=== PATIENT | male | born 1995 | race Caucasian/White ===

== ENCOUNTER → 2018-03-28 | Outpatient (CLI) | payer OTHER ==
[2018-03-28 16:54] LABS: Basophils # (A) 0.1 k/uL (0-0.2); Basophils % (A) 1 %; Eosinophils # (A) 0.4 k/uL (0-0.7); Eosinophils % (A) 5 %; HCT 45.1 % (39.0-53.0); HGB 15.2 gm/dL (13.0-17.5); Lymphocytes # (A) 2.5 k/uL (1.0-4.8); Lymphocytes % (A) 31 %; MCH 28.9 pg (25.0-35.0); MCHC 33.7 g/dL (31.0-37.0); MCV 85.9 fL (80.0-100.0); Mean Platelet Volume 7.8; Monocytes # (A) 0.5 k/uL (0-1.0); Monocytes % (A) 6 %; Neutrophils # (A) 4.3 k/uL (1.3-7.7); Neutrophils % (A) 54 %; Platelet Count 176 k/uL (150-450); RBC 5.26 m/uL (4.30-5.90); RDW 12.9 % (11.5-15.5); WBC 8.1 k/uL (3.8-10.6)
== END | disposition home or self-care (01) ==
LOC: LABWHC1 16:20
PROVIDERS: ATTEND Physician Assistant Medical
DX: L40.0 Psoriasis vulgaris (principal)
CPT/HCPCS: 36415; 82565; 84450; 84460; 85025; 86480

== ENCOUNTER → 2018-04-06 | Outpatient (CLI) | payer OTHER ==
[2018-04-07 04:11] LABS: Albumin 4.7 g/dL (3.80-4.90); Albumin/Globulin Ratio 2.24 (1.20-2.10); Bilirubin, Conjugated 0.2 mg/dL (0.20-0.40); Bilirubin,Unconjugated 0.2 mg/dL; Globulin 2.1 g/dL (2.1-3.7); Total Bilirubin 0.4 mg/dL (0.2-1.2); Total Protein 6.8 g/dL (6.2-8.2)
[2018-04-07 05:21] LABS: Hepatitis A Antibody IgM Non-Reactive (Non-Reactive); Hepatitis B Core IgM Non-Reactive (Non-Reactive)
== END | disposition home or self-care (01) ==
LOC: LABWHC1 16:15
PROVIDERS: ATTEND Family Medicine
DX: R74.8 Abnormal levels of other serum enzymes (principal)
CPT/HCPCS: 36415; 80074; 80076

== ENCOUNTER → 2018-04-28 | Outpatient (CLI) | payer OTHER ==
--- NOTE | 2018-04-28 15:45 | US ---
EXAMINATION TYPE: US liver DATE OF EXAM: 04/28/2018 COMPARISON: NONE CLINICAL HISTORY: R74.8 abnormal levels of other serum enzymes. elevated liver enzymes EXAM MEASUREMENTS: Liver Length: 16.1 cm Gallbladder Wall: 0.2 cm CBD: 0.3 cm Right Kidney: 13.3 x 6.5 x 5.2 cm Pancreas: Obscured by bowel gas Liver: attenuating Gallbladder: no evidence of stones Evidence for sonographic Sánchez's sign: no CBD: appears wnl Right Kidney: enlarged, no evidence of hydronephrosis IMPRESSION: 1. Mild fatty infiltration of the liver.
== END | disposition home or self-care (01) ==
LOC: RADUSWWP 15:11
PROVIDERS: ATTEND Family Medicine
DX: K76.0 Fatty (change of) liver, not elsewhere classified (principal)
CPT/HCPCS: 76705

== ENCOUNTER 2018-09-05 15:11 | Emergency (ER) | payer OTHER ==
[2018-09-05] MEDS ORDERED: SODIUM CHLORIDE 0.9% IRRIG 1,000 ML BTL IRRIGATION ONE (15:21)
[2018-09-05] MEDS ORDERED: LIDOCAINE 1% INJ 10MG/ML (20 ML MDV) SQ ONE (15:21)
[2018-09-05 15:37] VITALS: RESP 18; TEMP 97.5
--- NOTE | 2018-09-05 15:47 | XR ---
EXAMINATION TYPE: XR hand complete RT DATE OF EXAM: 09/05/2018 COMPARISON: NONE HISTORY: Pain TECHNIQUE: Three views are submitted. FINDINGS: There is a displaced transverse fracture through the shaft of the middle phalanx fourth digit and the lateral view of the volar plate third digit. There also appears to be a lucency through the middle p halanx of the second digit suggestive of a nondisplaced fracture. Soft tissue edema and emphysema are noted involving these 3 digits. IMPRESSION: 1. Displaced fracture middle phalanx fourth digit. 2. nondisplaced fracture middle phalanx second digit. 3. mildly displaced volar plate fracture middle phalanx third digit.
[2018-09-05] MEDS ORDERED: ceFAZolin 1,000 MG VIAL IM STA (15:49)
[2018-09-05] MEDS ORDERED: ceFAZolin IN SWFI 2 GM/20 ML SYRINGE IVP ONE (16:33)
--- NOTE | 2018-09-05 16:54 | ED ---
Upper Extremity HPI - General Chief Complaint: Extremity Injury, Upper Stated Complaint: Hand injury-[facility] Time Seen by Provider: 09/05/18 15:14 Source: patient, EMS Mode of arrival: EMS Limitations: no limitations - History of Present Illness Initial Comments: 23-year-old male presenting for right hand injury. Patient is left-handed. Patient states shows prior to arrival he was at work when his hand was pinched between a hydraulic machine to piece of metal. Patient states he immediately within 5 seconds removed his hand. Patient states there are laceration was unable to fully range at the digits secondary to pain. Patient was concerned about fractures and presented for evaluation. Patient states tetanus is updated within the last 5 years. Patient states he has an ALLERGY to Vicodin he states he was given morphine prior to arrival by EMS. Patient denies any other areas of injury chest pain at the wrist elbow or shoulder. Patient denies any numbness tingling of the fingers. He states he has full sensation. Patient denies any coolness or pallor of the distal extremities including the fingertips. Patient denies any bleeding under the nail beds. Remaining review of systems negative upon arrival patient appears well no signs of acute distress. Patient states pain is controlled. - Related Data Home Medications Medication Instructions Recorded Confirmed Stalara 1 injection IV Q84D 09/05/18 09/05/18 Previous Rx's Medication Instructions Recorded Acetaminophen with Codeine 1 tab PO Q4H PRN 3 Days #18 tab 09/05/18 [Tylenol w/codeine #3] Cephalexin [Keflex] 500 mg PO Q8HR 7 Days #21 cap 09/05/18 Allergies Allergy/AdvReac Type Severity Reaction Status Date / Time hydrocodone bitartrate AdvReac Unknown Verified 09/05/18 15:41 [From Vicodin] Review of Systems ROS Statement: Those systems with pertinent positive or pertinent negative responses have been documented in the HPI. ROS Other: All systems not noted in ROS Statement are negative. Past Medical History Past Medical History: No Reported History History of Any Multi-Drug Resistant Organisms: None Reported Past Surgical History: No Surgical Hx Reported Past Psychological History: No Psychological Hx Reported Smoking Status: Never smoker General Exam - General Exam Comments Initial Comments: General: The patient is awake and alert, in no distress, and does not appear acutely ill. Eye: +3 mm pupils are equal, round and reactive to light, extra-ocular movements are intact. No nystagmus. There is normal conjunctiva bilaterally. No signs of icterus. Ears, nose, mouth and throat: There are moist mucous membranes and no oral lesions. Neck: The neck is supple, there is no tenderness or JVD. Cardiovascular: There is a regular rate and rhythm. No murmur, rub or gallop is appreciated. Respiratory: Lungs are clear to auscultation, respirations are non-labored, breath sounds are equal. No wheezes, stridor, rales, or rhonchi. Musculoskeletal: Normal ROM at the MTP joint of all 5 digits of the right hand, full ROM at the PIP joint of digits 2 % 3. Limited ROM at digit 4 PIP joint/DIP joint. Strength 5/5 at the MTP joint, PIP of the digits 2& 3. 1.5 cm laceration at digit 4, that appears to have possibility of communication with bone no obvious bone or tendon exposure. 1cm laceration of digits 2 & 3, appear superficial. Sensation intact of all 5 digits at the fingertips of the right hand. Capillary refill of all 5 digits of the left hand less than 3 seconds Radial pulses equal bilaterally 2+. Laceration of the index finger on the ventral aspect, superficial 2.7cm. Neurological: A&O x 3. CN II-XII intact, There are no obvious motor or sensory deficits. Coordination appears grossly intact. Speech is normal. Skin: Skin is warm and dry and no rashes or lesions are noted. Psychiatric: Cooperative, appropriate mood & affect, normal judgment. Limitations: no limitations Course Vital Signs 09/05/18 09/05/18 15:33 16:55 Temperature 97.5 F L Pulse Rate 87 82 Respiratory 18 18 Rate Blood Pressure 128/84 131/87 O2 Sat by Pulse 97 98 Oximetry Procedures - Laceration Laceration #1 Consent Obtained: verbal consent Indication: laceration Site: hand (digit #1 dorsal aspect) Size (cm): 1 Description: irregular Anesthesia Technique: nerve block Amount (mls): 2 Pre-repair: wound explored, irrigated extensively, deep structures intact Type of Sutures: nylon Size of Sutures: 5-0 Number of Sutures: 3 Technique: simple, interrupted Patient Tolerated Procedure: well, no complications Laceration #2 Consent Obtained: verbal consent Indication: laceration Site: hand (digit 2 ventral surface) Size (cm): 1 Description: linear Depth: simple, single layer Anesthesia Technique: nerve block Amount (mls): 1 Type of Sutures: nylon Size of Sutures: 5-0 Number of Sutures: 1 Technique: simple, interrupted (loosely approximated) Patient Tolerated Procedure: well, no complications Laceration #3 Consent Obtained: verbal consent Indication: laceration Site: hand (digit #3 dorsal surface) Size (cm): 1 Description: linear Depth: simple, single layer Anesthesia Technique: nerve block Amount (mls): 2 Pre-repair: wound explored, irrigated extensively Type of Sutures: nylon Size of Sutures: 5-0 Number of Sutures: 1 Technique: simple, interrupted (loose approx) Patient Tolerated Procedure: well, no complications Laceration #4 Consent Obtained: verbal consent Indication: laceration Size (cm): 1 Description: linear Depth: simple, single layer Anesthetic Used: lidocaine 1% Anesthesia Technique: nerve block Amount (mls): 2 Pre-repair: wound explored, irrigated extensively, deep structures intact Type of Sutures: nylon Size of Sutures: 5-0 Number of Sutures: 1 Technique: simple, interrupted (loosely approximated) Patient Tolerated Procedure: well, no complications Medical Decision Making - Medical Decision Making 23-year-old male presenting today for chief complaint of crush injury to the right hand. Patient left hand dominant. Patient is neurovascularly intact. Patient's presentation and capillary refill of all 5 digits of the left hand. No pallor or coolness of the distal digits. Lacerations with possibility of open fractures with most concern for open fracture at digit 4 were repaired loose approximation with one suture for digits 2-4, lacerations all ~1.5cm in length and on dorsal surface. There is a 2.7cm superficial laceration on the ventral aspect of the index finger. After extensive irrigation and approximation as well as cleansed with iodine., Patient was bandaged and splinted were applied. I did discuss prior to treatment of wounds case with Rod MCGILL at orthopedic surgery who spoke with attending Dr. Sánchez who recommended abx, irrigation, loose approximation,splint, d/c with keflex and outpatient f/u. They did not recommend setting finger, stating that pin will need to be placed. Pt made appointment for 945AM tomorrow while in the ER. Pt given RX for tylenol #3. After discussing risk of opioid use with patient. Patient was discharged appearing well aware of the importance of return parameters as well as outpatient follow-up. Patient discharged premolar after discussing the case with a provider : Reviewed imaging studies. Disposition Clinical Impression: Open fracture of middle phalanx of finger, Multiple open fractures of middle phalanx of finger Disposition: HOME SELF-CARE Condition: Good Instructions (If sedation given, give patient instructions): Finger Fracture (ED) Additional Instructions: Please use medication as discussed. Please follow-up with orthopedic surgery as discussed. Please return to emergency room if the symptoms increase or worsen or for any other concerns. Prescriptions: Cephalexin [Keflex] 500 mg PO Q8HR 7 Days #21 cap Acetaminophen with Codeine [Tylenol w/codeine #3] 1 tab PO Q4H PRN 3 Days #18 tab PRN Reason: Severe Pain Is patient prescribed a controlled substance at d/c from ED?: Yes When asked, does pt state using other controlled substances?: No If prescribed controlled substance>3 days was MAPS reviewed?: Prescribed <3 Days If opioid is for acute pain is fill amount 7 days or less?: Yes If Rx opioid, was Start Talking consent form obtained?: Yes Referrals: Jose Guevara DO [Primary Care Provider] - 1-2 days Dany Sánchez MD [STAFF PHYSICIAN] - 1-2 days Time of Disposition: 16:57
[2018-09-05 16:56] VITALS: BP 131/87; PULSE 82
== END 2018-09-05 17:13 | disposition home or self-care (01) ==
LOC: EC 15:11
DX: S67.194A Crushing injury of right ring finger, initial encounter (principal); S67.192A Crushing injury of right middle finger, initial encounter; S67.190A Crushing injury of right index finger, initial encounter; S62.624B Displaced fracture of middle phalanx of right ring finger, initial encounter for open fracture; S62.622B Displaced fracture of middle phalanx of right middle finger, initial encounter for open fracture; S62.650B Nondisplaced fracture of middle phalanx of right index finger, initial encounter for open fracture; Z79.899 Other long term (current) drug therapy; Z88.5 Allergy status to narcotic agent; W31.89XA Contact with other specified machinery, initial encounter; Y92.69 Other specified industrial and construction area as the place of occurrence of the external cause; Y99.0 Civilian activity done for income or pay
CPT/HCPCS: 73130; 99284; 12002; 96374; J2001; J0690

== ENCOUNTER → 2019-05-04 | Outpatient (CLI) | payer OTHER ==
--- NOTE | 2019-05-06 13:22 | US ---
EXAMINATION TYPE: US scrotum with doppler. TECHNIQUE: Grayscale and color Doppler Duplex imaging performed of the scrotum. DATE OF EXAM: 05/04/2019 COMPARISON: NONE CLINICAL HISTORY: 23-year-old male N50.819 TESTICULAR PAIN. FINDINGS: EXAM MEASUREMENTS: TESTICLES: Right Testicle: 5.1 x 2.6 x 3.7 cm for a volume of 25.6 mL Left Testicle: 5.2 x 2.6 x 2.9 cm for a volume of 20.3 mL The testicles show homogeneous appearance with symmetric color flow. Satisfactory arterial and venous flow bilaterally. Some superimposed venous flow is demonstrated. EPIDIDYMIS HEAD: Right Epididymis: 0.7 cm cyst noted measuring 3 mm Left Epididymis: 0.9 cm Doppler performed to assess for testicular vascularity; good bilateral color flow and waveforms are s een. There is no evidence of testicular torsion. Presence of hydroceles: Trace on the right Presence of varicoceles: no IMPRESSION: 1. Slightly prominent size but symmetric appearance of the testicles. No sonographic evidence for deepti ticular torsion or epididymoorchitis. 2. Trace right-sided hydrocele.
== END | disposition home or self-care (01) ==
LOC: RADUSWWP 16:13
PROVIDERS: ATTEND Family Medicine
DX: N50.819 Testicular pain, unspecified (principal)
CPT/HCPCS: 76870; 93975

== ENCOUNTER → 2019-06-19 | Outpatient (CLI) | payer OTHER ==
[~2019-06-19] MED LIST: TUBERCULIN PPD (SKIN TEST) 5 UNIT/0.1 ML (MDV) VIAL INTRADERMA ONE
[2019-06-19 16:24] VITALS: BP 141/74; PULSE 84; RESP 16; TEMP 98.1
[2019-06-19 16:54] LABS: ALT 98 U/L (4-49); AST 49 U/L (17-59); African American GFR (CKD) >90 (>60 ml/min/1.73 sqM); Non-African American GFR(CKD) >90 (>60 ml/min/1.73 sqM)
[2019-06-19 16:55] LABS: Basophils % (A) 1 %; Eosinophils # (A) 0.1 k/uL (0-0.7); Eosinophils % (A) 2 %; HCT 42.7 % (39.0-53.0); HGB 14.4 gm/dL (13.0-17.5); Lymphocytes # (A) 2.7 k/uL (1.0-4.8); Lymphocytes % (A) 33 %; MCH 27.9 pg (25.0-35.0); MCHC 33.8 g/dL (31.0-37.0); MCV 82.8 fL (80.0-100.0); Mean Platelet Volume 7.9; Monocytes # (A) 0.4 k/uL (0-1.0); Monocytes % (A) 5 %; Neutrophils # (A) 4.5 k/uL (1.3-7.7); Neutrophils % (A) 56 %; Platelet Count 256 k/uL (150-450); RBC 5.16 m/uL (4.30-5.90); RDW 12.5 % (11.5-15.5); WBC 8.1 k/uL (3.8-10.6)
== END | disposition home or self-care (01) ==
LOC: PROCWHC3 16:04
PROVIDERS: ATTEND Dermatology MOHS-Micrographic Surgery
DX: L40.0 Psoriasis vulgaris (principal)
CPT/HCPCS: 36415; 82565; 84450; 84460; 85025; 86580

== ENCOUNTER → 2020-06-27 | Outpatient (CLI) | payer OTHER ==
[2020-06-27 23:23] LABS: Basophils # (A) 0.07 X 10*3/uL (0.00-0.10); Basophils % (A) 0.7 %; Eosinophils # (A) 0.43 X 10*3/uL (0.04-0.35); Eosinophils % (A) 4.4 %; HCT 46.4 % (39.6-50.0); HGB 15.5 g/dL (13.0-17.0); Lymphocytes % (A) 33.8 %; MCH 28.9 pg (27.0-32.0); MCHC 33.4 g/dL (32.0-37.0); MCV 86.4 fL (80.0-97.0); Mean Platelet Volume 11.7 fL (9.5-12.2); Monocytes # (A) 0.77 X 10*3/uL (0.20-1.00); Monocytes % (A) 7.9 %; Neutrophils # (A) 5.13 X 10*3/uL (1.80-7.70); Neutrophils % (A) 52.7 %; Platelet Count 232 X 10*3/uL (140-440); RBC 5.37 X 10*6/uL (4.40-5.60); RDW 12.3 % (11.5-14.5); WBC 9.75 X 10*3/uL (4.50-10.00)
[2020-06-28 01:38] LABS: African American GFR (CKD) 106.1 (60.0-200.0); Non-African American GFR(CKD) 91.5 (60.0-200.0)
[2020-06-28 04:32] LABS: Hepatitis B Surface AB- Quant 3.5 mIU/mL; Hepatitis B Surface Antibody Non-Reactive (Non-Reactive)
== END | disposition home or self-care (01) ==
LOC: LABWHC1 15:00
PROVIDERS: ATTEND Physician Assistant Medical
DX: L40.0 Psoriasis vulgaris (principal)
CPT/HCPCS: 36415; 82565; 84450; 84460; 85025; 86480; 86704; 86706

== ENCOUNTER → 2021-09-30 | Outpatient (CLI) | payer OTHER ==
[2021-09-30 22:36] LABS: African American GFR (CKD) 95.8 (60.0-200.0); Non-African American GFR(CKD) 82.6 (60.0-200.0)
[2021-09-30 22:39] LABS: Basophils # (A) 0.06 X 10*3/uL (0.00-0.10); Basophils % (A) 0.7 %; Eosinophils # (A) 0.35 X 10*3/uL (0.04-0.35); Eosinophils % (A) 4.3 %; HCT 44.9 % (39.6-50.0); HGB 14.3 g/dL (13.0-17.0); Immature Grans, Automated 0.4 %; Lymphocytes # (A) 2.94 X 10*3/uL (0.90-5.00); Lymphocytes % (A) 36.2 %; MCHC 31.8 g/dL (32.0-37.0); Mean Platelet Volume 12.2 fL (9.5-12.2); Monocytes # (A) 0.52 X 10*3/uL (0.20-1.00); Monocytes % (A) 6.4 %; NRBC Per 100 WBC 0 /100 WBCS (0.0-0.0); Neutrophils # (A) 4.23 X 10*3/uL (1.80-7.70); Platelet Count 195 X 10*3/uL (140-440); RDW 12.1 % (11.5-14.5); WBC 8.13 X 10*3/uL (4.50-10.00)
== END | disposition home or self-care (01) ==
LOC: LABWHC1 15:48
PROVIDERS: ATTEND Physician Assistant Medical
DX: L40.0 Psoriasis vulgaris (principal)
CPT/HCPCS: 36415; 82565; 84450; 84460; 85025; 86480

== ENCOUNTER → 2022-11-26 | Outpatient (CLI) | payer OTHER ==
[2022-11-27 02:24] LABS: Basophils # (A) 0.06 X 10*3/uL (0.00-0.10); Basophils % (A) 0.7 %; Eosinophils % (A) 4.6 %; HCT 46.1 % (39.6-50.0); HGB 15.3 d/dL (13.0-17.0); Lymphocytes # (A) 2.94 X 10*3/uL (0.90-5.00); Lymphocytes % (A) 33.8 %; MCH 29.4 pg (27.0-32.0); MCHC 33.2 d/dL (32.0-37.0); MCV 88.5 FL (80.0-97.0); Mean Platelet Volume 12.1 FL (9.5-12.2); Monocytes # (A) 0.84 X 10*3/uL (0.20-1.00); Monocytes % (A) 9.6 %; NRBC Per 100 WBC 0 X 10*3/uL (0.00-0.01); Neutrophils # (A) 4.43 X 10*3/uL (1.80-7.70); Neutrophils % (A) 50.8 %; Platelet Count 219 X 10*3/uL (140-440); RBC 5.21 X 10*6/uL (4.40-5.60); RDW 12.4 % (11.5-14.5); WBC 8.71 X 10*3/uL (4.50-10.00)
[2022-11-27 02:38] LABS: ALT 31 U/L (10-49); AST 23 U/L (14-35)
== END | disposition home or self-care (01) ==
LOC: LABWHC1 16:04
PROVIDERS: ATTEND Dermatology MOHS-Micrographic Surgery
DX: L40.0 Psoriasis vulgaris (principal)
CPT/HCPCS: 36415; 82565; 84450; 84460; 85025; 86480

== ENCOUNTER → 2024-02-02 | Outpatient (CLI) | payer OTHER | END | disposition home or self-care (01) | LOC: LABWHC1 14:56 | PROVIDERS: ATTEND Physician Assistant Medical | DX: L40.0 Psoriasis vulgaris (principal); Z79.899 Other long term (current) drug therapy | CPT/HCPCS: 36415; 86480 ==

== ENCOUNTER → 2024-10-31 | Outpatient (CLI) | payer OTHER ==
[2024-10-31 18:35] LABS: HCT 46.8 % (39.6-50.0); HGB 15.7 g/dL (13.0-17.0); MCH 29.0 pg (27.0-32.0); MCHC 33.5 g/dL (32.0-37.0); MCV 86.5 FL (80.0-97.0); NRBC Per 100 WBC 0 X 10*3/uL (0.00-0.01); Platelet Count 205 X 10*3/uL (140-440); RBC 5.41 X 10*6/uL (4.40-5.60); RDW 12.5 % (11.5-14.5); WBC 9.65 X 10*3/uL (4.50-10.00)
[2024-10-31 18:36] LABS: Basophils # (A) 0.07 X 10*3/uL (0.00-0.10); Basophils % (A) 0.7 %; Eosinophils # (A) 0.37 X 10*3/uL (0.04-0.35); Eosinophils % (A) 3.8 %; Immature Grans, Automated 0.50 %; Lymphocytes # (A) 2.80 X 10*3/uL (0.90-5.00); Lymphocytes % (A) 29.0 %; Monocytes # (A) 0.93 X 10*3/uL (0.20-1.00); Monocytes % (A) 9.6 %; Neutrophils # (A) 5.43 X 10*3/uL (1.80-7.70); Neutrophils % (A) 56.4 %
[2024-10-31 19:09] LABS: Bilirubin,Urine Negative (Negative); Blood,Urine Negative (Negative); Color,Urine Dark Yellow (Yellow); Ketones,Urine Trace (Negative); Nitrite,Urine Negative (Negative); PH, Urine 6.5; Specific Gravity,Urine 1.030 (1.001-1.030); Urobilinogen,Urine 1.0 E.U./DL
[2024-10-31 19:15] LABS: ALT 30 U/L (10-49); AST 21 U/L (14-35); Albumin 4.8 g/dL (3.8-4.9); Albumin/Globulin Ratio 2.29 Ratio (1.60-3.17); Alkaline Phosphatase 81 U/L (41-126); Anion Gap 11.00 mmol/L (4.00-12.00); BUN/Creat Ratio 16.30 Ratio (12.00-20.00); Blood Urea Nitrogen 16.3 mg/dL (9.0-27.0); Calcium 9.5 mg/dL (8.7-10.3); Carbon Dioxide 24.0 mmol/L (21.6-31.8); Chloride 105 mmol/L (96-109); Cholesterol 180.00 mg/dL (0.00-200.00); Globulin 2.1 g/dL (1.6-3.3); Glucose 103 mg/dL (70-110); HDL Cholesterol 34.70 mg/dL (40.00-60.00); LDL Cholesterol,Calculated 119.3 mg/dL (0.0-131.0); Potassium 3.9 mmol/L (3.5-5.5); Sodium 140 mmol/L (135-145); Total Protein 6.9 g/dL (6.2-8.2); Triglycerides 130.00 mg/dL (0.00-149.00); VLDL Calculation 26.00 mg/dL (5.00-40.00)
== END | disposition home or self-care (01) ==
LOC: LABWHC1 14:59
PROVIDERS: ATTEND Family Medicine
DX: Z00.00 Encounter for general adult medical examination without abnormal findings (principal)
CPT/HCPCS: 36415; 80053; 80061; 81003; 82306; 83036; 84443; 85025